=== PATIENT | female | born 1955 | race Caucasian/White ===

== ENCOUNTER → 2017-02-13 | Outpatient (CLI) | payer BC ==
[2017-02-13 11:56] LABS: Bilirubin, Delta 0.3 mg/dL (0.0-0.2); Total Bilirubin 0.7 mg/dL (0.2-1.3)
== END | disposition home or self-care (01) ==
LOC: LABWHC1 11:05
DX: K58.0 Irritable bowel syndrome with diarrhea (principal)
CPT/HCPCS: 36415; 80076

== ENCOUNTER → 2019-06-10 | Outpatient (CLI) | payer BC ==
--- NOTE | 2019-06-12 13:22 | MM ---
Reason for exam: screening (asymptomatic). Last mammogram was performed 3 years and 4 months ago. History: Patient is postmenopausal. Family history of breast cancer in mother at age 57. Benign excisional biopsy of the left breast, 1989. Benign excisional biopsy of the left breast, 1988. Physical Findings: A clinical breast exam by your physician is recommended on an annual basis and results should be correlated with mammographic findings. MG 3D Screening Mammo W/Cad Bilateral CC and MLO view(s) were taken. Prior study comparison: February 21, 2016, bilateral MG 3d screening mammo w/cad. February 09, 2014, CAD bilateral diagnostic mammogram. There are scattered fibroglandular densities. Finding: There is a new 3 mm mass located 7 cm from the nipple in the outer quadrant, middle position. There is a distortion in left CC view. New finding since February 21, 2016 and February 09, 2014. ASSESSMENT: Incomplete: need additional imaging evaluation, BI-RAD 0 RECOMMENDATION: Special view mammogram of the right breast. If lesion persists on supplemental views, image directed ultrasound is recommended. [facility] will attempt to contact patient to return for supplemental views and ultrasound if indicated.
== END | disposition home or self-care (01) ==
LOC: RADMAMWWP 16:17
PROVIDERS: ATTEND Family Medicine
DX: Z12.31 Encounter for screening mammogram for malignant neoplasm of breast (principal)
CPT/HCPCS: 77063; 77067

== ENCOUNTER → 2019-06-23 | Outpatient (CLI) | payer BC ==
--- NOTE | 2019-06-24 10:40 | MM ---
Reason for exam: additional evaluation requested from abnormal screening. Last mammogram was performed less than 1 month ago. History: Patient is postmenopausal. Family history of breast cancer in mother at age 57. Benign excisional biopsy of the left breast, 1989. Benign excisional biopsy of the left breast, 1988. Benign excisional biopsy of the right breast. Physical Findings: Nurse Summary: There is a 1 cm dominant mass at the 9 o'clock position in the right breast. MG 3D Work Up W/Cad RADHA Bilateral spot compression CC and LM view(s) were taken. Prior study comparison: June 10, 2019, bilateral MG 3d screening mammo w/cad. February 21, 2016, bilateral MG 3d screening mammo w/cad. There are scattered fibroglandular densities. No discrete abnormality in the left breast. The density on the right breast persisted at the area of the scar. ASSESSMENT: Incomplete: need additional imaging evaluation, BI-RAD 0 RECOMMENDATION: Ultrasound of the right breast.
--- NOTE | 2019-06-24 10:51 | USB ---
Reason for exam: additional evaluation requested from prior study. History: Patient is postmenopausal. Family history of breast cancer in mother at age 57. Benign excisional biopsy of the left breast, 1989. Benign excisional biopsy of the left breast, 1988. US Breast Workup RT Right complete breast ultrasound includes all four quadrants, the retroareolar region and axilla. Finding demonstrates a 0.4 x 0.3 x 0.3 cm to small to characterize lesion at 1 o'clock, a 0.4 x 0.4 x 0.4 cystic lesion at 4 o'clock, a 0.7 x 0.4 x 0.8 cm cystic lesion at 5 o'clock, a 0.4 x 0.4 x 0.4 cystic lesion at 8 o'clock, and a 0.5 x0.3 x 0.5 cm cystic lesion at 9 o'clock. ASSESSMENT: Benign, BI-RAD 2 RECOMMENDATION: Return to routine screening mammogram schedule for both breasts.
== END | disposition home or self-care (01) ==
LOC: RADMAMWWP 13:01
PROVIDERS: ATTEND Family Medicine
DX: R92.8 Other abnormal and inconclusive findings on diagnostic imaging of breast (principal)
CPT/HCPCS: 77062; 77066